=== PATIENT | female | born 1990 | race Two or more races ===

== ENCOUNTER → 2017-07-21 | Emergency (ER) | payer OTHER ==
[~2017-07-21] VITALS: Ht 160 cm; Wt 65.8 kg
[~2017-07-21] MED LIST: INTESTINEX680 M1 PO; PEPCID40 MG PO; ZOFRAN4 MG PO
== END | disposition home or self-care (01) ==
LOC: ER 15:54
DX: K52.89 Other specified noninfective gastroenteritis and colitis (principal)